=== PATIENT | male | born 1985 | race Two or more races ===

== ENCOUNTER 2016-12-09 10:12 | Emergency (ER) | payer OTHER ==
[~2016-12-09] VITALS: Ht 177.8 cm; Wt 74.8 kg
[2016-12-09 10:21] VITALS: BP 115/75
[2016-12-09] MEDS ORDERED: NKM (10:24)
--- NOTE | 2016-12-09 10:36 | Emergency Room Report ---
History of Present Illness General Chief Complaint: Skin Rash/Abscess Source: Patient Present Illness HPI Patient presents with complaints of rash to the forearms and the facial area The symptoms started 3 days ago patient had used Benadryl on one occasion there was some minimal improvement however as the rash continued he was concerning came to the ER Denies any other recent medications denies any other change in food oral intake Denies any contact with anything that he recalls The area is itchy in nature Denies any pain Allergies: Coded Allergies: No Known Allergies (Unverified , 12/09/16) Patient History Past Medical History: see triage record Pertinent Family History: none Reviewed Nursing Documentation: PMH: Agreed, PSxH: Agreed Nursing Documentation-PMH Past Medical History: No Stated History Review of Systems All Other Systems: negative except mentioned in HPI Physical Exam Vital Signs Date Time Temp Pulse Resp B/P Pulse Ox O2 Delivery O2 Flow Rate FiO2 12/09/16 10:21 97.3 67 16 115/75 97 Room Air Sp02 EP Interpretation: reviewed, normal General Appearance: well appearing, no apparent distress Head: normocephalic, atraumatic Eyes: bilateral eye EOMI, bilateral eye PERRL ENT: hearing grossly normal, normal pharynx, TMs + canals normal, uvula midline Neck: full range of motion, supple, no meningismus, no bony tend Respiratory: lungs clear, normal breath sounds, no rhonchi, no respiratory distress, no retraction, no accessory muscle use Cardiovascular #1: normal peripheral pulses, regular rate, rhythm, no edema, no gallop, no JVD, no murmur Gastrointestinal: normal bowel sounds, non tender, soft, no mass, no organomegaly, non-distended, no guarding, no hernia, no pulsatile mass, no rebound Genitourinary: no CVA tenderness Musculoskeletal: normal inspection Neurologic: oriented x3, responsive, lead dental assistant III-XII nml as tested, motor strength/ tone normal, sensory intact Psychiatric: mood/affect normal Skin: other - Nonspecific rash involving both forearms, also facial area involving vince orbital region, no intraoral lesion, appears to spare the back and chest area Lymphatic: normal inspection, no adenopathy Medical Decision Making Diagnostic Impression: Primary Impression: Rash and other nonspecific skin eruption ER Course Has no obvious source of the patient's dermatitis does appear to be allergic in nature Patient was treated symptomatically here And will have continued care as an outpatient Last Vital Signs Date Time Temp Pulse Resp B/P Pulse Ox O2 Delivery O2 Flow Rate FiO2 12/09/16 10:21 97.3 67 16 115/75 97 Room Air Status: improved Disposition: HOME, SELF-CARE Condition: Improved Scripts Diphenhydramine Hcl* (BENADRYL*) 25 Mg Capsule 25 MG ORAL Q6H Y for Itching, #30 CAP Prov: DANG LOPEZ D.O. 12/09/16 Ranitidine Hcl* (ZANTAC*) 150 Mg Tablet 150 MG ORAL TWICE A DAY, #30 TAB Prov: DANG LOPEZ D.O. 12/09/16 Prednisone* (PREDNISONE*) 20 Mg Tablet 20 MG ORAL DAILY, #5 TAB Prov: DANG LOPEZ D.O. 12/09/16 Additional Instructions: Patient is provided with the discharge instructions notified to follow up with primary doctor in the next 2-3 days otherwise return to the er with any worsening symptoms. Please note that this report is being documented using [employer] technology. This can lead to erroneous entry secondary to incorrect interpretation by the dictating instrument. DANG LOPEZ D.O. Dec 09, 2016 10:36
[2016-12-09] MEDS ORDERED: PredniSONE 20mg tab ORAL ONE (10:45)
[2016-12-09] MEDS ORDERED: BENADRYL25 MG ORAL (11:08)
[2016-12-09] MEDS ORDERED: PREDNISONE20 MG ORAL (11:08)
[2016-12-09] MEDS ORDERED: RANITIDINE HCL150 MG ORAL (11:08)
[2016-12-09 11:27] VITALS: BP 107/40
== END 2016-12-09 11:34 | disposition home or self-care (01) ==
LOC: EMR 11:09
DX: R21 Rash and other nonspecific skin eruption (principal)
CPT/HCPCS: 99284

== ENCOUNTER 2017-02-12 16:17 | Emergency (ER) | payer OTHER ==
[~2017-02-12] VITALS: Ht 175.3 cm; Wt 74.8 kg
[~2017-02-12 16:17] MED LIST: BENADRYL25 MG ORAL; NKM; PREDNISONE20 MG ORAL; RANITIDINE HCL150 MG ORAL
[2017-02-12 16:40] VITALS: BP 129/88
--- NOTE | 2017-02-12 17:29 | Emergency Room Report ---
History of Present Illness General Chief Complaint: Upper Extremity Injury Source: Patient Present Illness HPI 31-year-old male presents emergency department complaining of bilateral upper extremity swelling and blotchy rash that is mildly red and somewhat itchy x2 days. Patient denies rash elsewhere on the body or lesions elsewhere. Patient denies new soaps or detergents. he denies history of allergies. Patient does report intermittent sneezing throughout the day. denies fevers, chills, increased temperature palpation, fall or trauma. he denies pain. Denies swelling of the lips or tongue, denies wheezing. He should states that his arms feel swollen and is somewhat the discomfort however it is not painful. Denies CP, Palpitations, LOC, AMS, dizziness, Changes in Vision, Sensation, paresthesias, or a sudden severe headache. Allergies: Coded Allergies: No Known Allergies (Unverified , 12/09/16) Patient History Past Medical History: see triage record Past Surgical History: none Pertinent Family History: none Immunizations: UTD Reviewed Nursing Documentation: PMH: Agreed, PSxH: Agreed Nursing Documentation-PMH Past Medical History: No Stated History Review of Systems All Other Systems: negative except mentioned in HPI Physical Exam Vital Signs Date Time Temp Pulse Resp B/P Pulse Ox O2 Delivery O2 Flow Rate FiO2 02/12/17 16:40 97.3 81 18 129/88 97 Room Air Sp02 EP Interpretation: reviewed, normal General Appearance: no apparent distress, alert, GCS 15, non-toxic Head: normocephalic, atraumatic Eyes: bilateral eye PERRL, bilateral eye normal inspection ENT: hearing grossly normal, normal pharynx, no angioedema, normal voice Neck: full range of motion, supple/symm/no masses Respiratory: chest non-tender, lungs clear, normal breath sounds, speaking full sentences Cardiovascular #1: regular rate, rhythm, no edema, normal capillary refill Musculoskeletal: back normal, gait/station normal, normal range of motion, non- tender Neurologic: alert, oriented x3, responsive, motor strength/tone normal, sensory intact, speech normal Psychiatric: judgement/insight normal, memory normal, mood/affect normal Skin: normal color, warm/dry, well hydrated, rash - blanching erythematous confluent rash of the UE's bilaterally, no crusting, no induration no increased temperature to palpation, mild swelling noted generalized. Lymphatic: no adenopathy Medical Decision Making PA Attestation Dr. Carlin is my supervising Physician whom patient management has been discussed with. Diagnostic Impression: Primary Impression: Allergic reaction Qualified Codes: T78.40XA - Allergy, unspecified, initial encounter Additional Impression: Allergic dermatitis ER Course 31-year-old male presents emergency department complaining of bilateral upper extremity swelling and blotchy rash that is mildly red and somewhat itchy x2 days. Patient denies rash elsewhere on the body or lesions elsewhere. Patient denies new soaps or detergents. he denies history of allergies. Patient does report intermittent sneezing throughout the day. denies fevers, chills, increased temperature palpation, fall or trauma. he denies pain. He should states that his arms feel swollen and is somewhat the discomfort however it is not painful. Ddx considered but are not limited to cellulitis, scabies, shingles, varicella, dermatitis, urticaria, eczema, tinea. SJS Vital signs: are WNL, pt. is afebrile H&PE are most consistent with localized allergic reaction of the bilateral UE' s. ORDERS: none required at this time, the diagnosis is clinical ED INTERVENTIONS: -25mg Benadryl PO DISCHARGE: At this time pt. is stable for d/c to home. Will provide printed patient care instructions, and any necessary prescriptions. Care plan and follow up instructions have been discussed with the patient prior to discharge. Last Vital Signs Date Time Temp Pulse Resp B/P Pulse Ox O2 Delivery O2 Flow Rate FiO2 02/12/17 16:40 97.3 81 18 129/88 97 Room Air Disposition: HOME, SELF-CARE Condition: Stable Scripts Loratadine (CLARITIN) 10 Mg Capsule 10 MG ORAL DAILY for 14 Days, #20 CAP Prov: Manda Weaver P.A. 02/12/17 Hydroxyzine Hcl (HYDROXYZINE HCL) 25 Mg Tablet 25 MG PO TID for 5 Days, #20 TAB Prov: Manda Weaver.Yuki 02/12/17 Referrals: BRUNO PENA,REFERRING (PCP) Patient Instructions: Allergies, [id number], Contact Dermatitis, [id number] Additional Instructions: Take medications as directed. Follow up with PCP in 3-5 days Return sooner to ED if new symptoms occur, or current symptoms become worse. Do not drink alcohol, drive, or operate heavy machinery while taking hydroxyzine as this may cause drowsiness. - Please note that this Emergency Department Report was dictated using [employer] technology software, occasionally this can lead to erroneous entry secondary to interpretation by the dictation equipment. Manda Weaver February 12, 2017 17:29
[2017-02-12 17:30] VITALS: BP 129/88
[2017-02-12] MEDS ORDERED: CLARITIN10 M2 ORAL (17:31)
[2017-02-12] MEDS ORDERED: HYDROXYZINE HCL25 M1 PO (17:31)
== END 2017-02-12 17:55 | disposition home or self-care (01) ==
LOC: EMR 17:15
DX: T78.40XA Allergy, unspecified, initial encounter (principal); X58.XXXA Exposure to other specified factors, initial encounter; R21 Rash and other nonspecific skin eruption; R60.0 Localized edema
CPT/HCPCS: 99284